=== PATIENT | female | born 1950 | race Caucasian/White ===

== ENCOUNTER 2021-07-16 05:41 | Day surgery (SDC) | payer MEDICARE ==
[2021-07-14 10:34] LABS: BASOPHILS % (AUTO) 0.6 % (0.0-5.0); EOSINOPHILS % (AUTO) 3.7 % (0.0-8.0); LYMPHOCYTES % (AUTO) 31.3 % (21.0-51.0); MEAN CORPUSCULAR HEMOGLOBIN 26.1 pg (27.0-33.0); MONOCYTES % (AUTO) 8.6 % (3.0-13.0); NEUTROPHILS % (AUTO) 55.3 % (40.0-77.0); PLATELET COUNT (AUTO) 353 K/uL (130-400); RED BLOOD CELL COUNT(AUTO) 4.71 MIL/uL (4.00-5.50); RED CELL DISTRIBUTION WIDTH 15.6 % (11.0-15.5); WHITE BLOOD COUNT (AUTO) 8.2 K/uL (4.8-10.8)
[2021-07-14 10:41] LABS: CREATININE 0.8 mg/dL (0.5-1.5); POTASSIUM 4.4 mmol/L (3.5-5.1)
[2021-07-15 09:20] VITALS: BP 148/74
[~2021-07-16] VITALS: Ht 160 cm; Wt 91.4 kg
[2021-07-16] VITALS (8 sets, daily range): BP systolic 107–119; BP diastolic 52–65
[~2021-07-16 05:41] MED LIST: AMLO-257 PO; ASPI-1443 PO; BRIM5DRO4 OU; BUPR-49 PO; CLOP75TA14 PO; EZET10TA48 PO; FLUT9.9S NS; LATA7.5D OU; LOSA100T58 PO; METH-812 PO; MVIT PO; NAPR1TAB28 PO; NAPR220C15 PO; OMEP-420 PO; PRAM0.258 PO; PRAV10TA39 PO; PREG150C46 PO; SEMA3TAB PO; ZOLP5TAB8 PO; [UNRECOGNIZED DRUG - OTHER] PO; [UNRECOGNIZED DRUG - OTHER] PO; calcium PO
[2021-07-16] MEDS ORDERED: 0.9%NACL 1000ML 1,000 ML IV ONE (06:11)
[2021-07-16] MEDS: CLINDAMYCIN IVPB 900MG/50ML 50 ML IV SCH ×2 (06:47→07:30)
[2021-07-16] MEDS ORDERED: FENTANYL CITRATE PF 50 MCG/1 ML 2ML VIAL ONE ×2 (06:58→07:32)
[2021-07-16] MEDS ORDERED: MIDAZOLAM HCL 1 MG/ML 2ML VIAL ONE (06:58)
[2021-07-16] MEDS ORDERED: SODIUM BICARB [NEONATAL] 4.2% 10ML SYG ONE (07:03)
[2021-07-16] MEDS ORDERED: BUPIVACAINE/PF 0.25% 30ML VIAL IJ ONE (07:04)
[2021-07-16] MEDS ORDERED: LIDOCAINE HCL 1% 20 ML VIAL ONE (07:04)
[2021-07-16] MEDS ORDERED: LIDOCAINE HCL MPF 1% 5ML VIAL ONE (07:09)
[2021-07-16] MEDS ORDERED: IOPAMIDOL 10 ML VIAL ONE (07:33)
[2021-07-16] MEDS ORDERED: ONDANSETRON 4MG INJ ONE (07:38)
== END 2021-07-16 09:15 | disposition home or self-care (01) ==
LOC: DAH 05:41
PROVIDERS: ATTEND Neurological Surgery
DX: M53.3 Sacrococcygeal disorders, not elsewhere classified (principal); Z79.01 Long term (current) use of anticoagulants; Z88.0 Allergy status to penicillin; Z79.899 Other long term (current) drug therapy; Z20.822 Contact with and (suspected) exposure to COVID-19
CPT/HCPCS: 36415; 72202; 80048; 82948 ×2; 85025; 87635; 93005; A4215 ×2; A4221; A4222; A4223; A4663; A6260; C9803; G0260; J1030; J2250; J2405; J3010 ×2; J3490 ×3; J7030; Q9966

== ENCOUNTER 2022-02-18 05:52 | Inpatient (IN) | payer MEDICARE ==
[2022-02-15 12:18] LABS: BASOPHILS % (AUTO) 0.6 % (0.0-5.0); EOSINOPHILS % (AUTO) 4.1 % (0.0-8.0); HEMATOCRIT 38.3 % (36-48); LYMPHOCYTES % (AUTO) 25.1 % (21.0-51.0); MEAN CORPUSCULAR HEMOGLOBIN 27.5 pg (27.0-33.0); MEAN CORPUSCULAR HGB CONC 31.1 g/dL (32.0-36.0); MEAN CORPUSCULAR VOLUME 88.7 fL (79-99); MONOCYTES % (AUTO) 7.6 % (3.0-13.0); PLATELET COUNT (AUTO) 348 K/uL (130-400); RED BLOOD CELL COUNT(AUTO) 4.32 MIL/uL (4.00-5.50); RED CELL DISTRIBUTION WIDTH 15.6 % (11.0-15.5); WHITE BLOOD COUNT (AUTO) 8.2 K/uL (4.8-10.8)
[2022-02-15 12:40] LABS: CREATININE 0.9 mg/dL (0.5-1.5); POTASSIUM 4.3 mmol/L (3.5-5.1)
[2022-02-17 08:38] VITALS: BP 175/80
[2022-02-18] VITALS (25 sets, daily range): BP systolic 113–148; BP diastolic 61–92
[~2022-02-18] VITALS: Ht 160 cm; Wt 92.4 kg
[~2022-02-18 05:52] MED LIST changes: -BRIM5DRO4 OU; -BUPR-49 PO; +CALC-1105 PO; -CLOP75TA14 PO; -FLUT9.9S NS; +L.AC1CAP6 PO; +MELA10TA2 PO; -METH-812 PO; -PREG150C46 PO; +PREG300C19 PO; -SEMA3TAB PO; +VENL-191 PO; -[UNRECOGNIZED DRUG - OTHER] PO; -[UNRECOGNIZED DRUG - OTHER] PO; -calcium PO
[2022-02-18] MEDS: CLINDAMYCIN IVPB 900MG/50ML 50 ML IV SCH ×6 (06:00→23:20)
[2022-02-18] MEDS ORDERED: LACTATED RINGERS 1000ML 1,000 ML IV ONE (06:25)
[2022-02-18] MEDS ORDERED: CEFAZOLIN SODIUM 1 GM VIAL ONE (06:32)
[2022-02-18] MEDS ORDERED: BUPIVACAINE/EPI/PF 0.5% 30ML VIAL IJ ONE (06:32)
[2022-02-18] MEDS ORDERED: PROPOFOL 10 MG/ML 20ML VIAL IV ONE (06:42)
[2022-02-18] MEDS ORDERED: SUCCINYLCHOLINE CHLORIDE 20 MG/ML 10 ML VIAL ONE (06:42)
[2022-02-18] MEDS ORDERED: NEOSTIGMINE 5MG/5ML SYR IV ONE (06:43)
[2022-02-18] MEDS ORDERED: ROCURONIUM 10MG/1ML SYR 10 MG/ML ML ONE (06:43)
[2022-02-18] MEDS ORDERED: ONDANSETRON 4MG INJ ONE ×2 (06:43→08:16)
[2022-02-18] MEDS ORDERED: MIDAZOLAM HCL 1 MG/ML 2ML VIAL ONE ×2 (06:43→07:50)
[2022-02-18] MEDS ORDERED: DEXAMETHASONE SOD PHOSPHATE 10MG/ML 1ML VIAL ONE (06:43)
[2022-02-18] MEDS ORDERED: GLYCOPYRROLATE 1 MG/5 ML SYRINGE ONE (06:43)
[2022-02-18] MEDS ORDERED: FENTANYL CITRATE PF 50 MCG/1 ML 2ML VIAL ONE ×3 (06:44→09:52)
[2022-02-18] MEDS ORDERED: ARTIFICIAL TEARS 3.5 GM OINTMENT ONE (08:00)
[2022-02-18] MEDS ORDERED: PHENYLEPHRINE HCL 10 MG/ML 1ML VIAL IV ONE (08:19)
[2022-02-18] MEDS ORDERED: VANCOMYCIN 1G VIAL ONE (08:46)
[2022-02-18] MEDS ORDERED: MEPERIDINE-PF 25 MG/ML SYG ONE (11:14)
[2022-02-18] MEDS: LACTATED RINGERS 1000ML 1,000 ML IV SCH ×4 (12:34→23:28)
[2022-02-18] MEDS: KETOROLAC 15MG/ML VIAL (15MG/ML) IV PRN ×2 (13:09→20:11)
[2022-02-18] MEDS ORDERED: PROMETHAZINE HCL 25 MG/ML 1ML AMPULE IM PRN (14:30)
[2022-02-18] MEDS ORDERED: 0.9%NACL 10ML VIAL IVP PRN (14:30)
[2022-02-18] MEDS: DEXAMETHASONE SOD PHOSPHATE 4 MG/ML 1ML VIAL IVP SCH ×3 (15:37→23:28)
[2022-02-18] MEDS: PANTOPRAZOLE 40 MG TAB DR PO SCH ×2 (15:37→15:48)
[2022-02-18] MEDS: LOSARTAN 100 MG TABLET PO SCH (20:08)
[2022-02-18] MEDS: PREGABALIN 100 MG CAPSULE PO SCH (20:09)
[2022-02-18] MEDS: NAPROXEN 250 MG TAB PO SCH (20:11)
[2022-02-18] MEDS: LATANOPROST 2.5 ML DROPS OU SCH (20:12)
[2022-02-18] MEDS: PRAMIPEXOLE DI-HCL 0.25 MG TABLET PO SCH (20:12)
[2022-02-18] MEDS: ZOLPIDEM TARTRATE 5 MG TAB PO SCH (20:12)
[2022-02-18] MEDS: MELATONIN 20 MG PO SCH (20:12)
[2022-02-18] MEDS: ASPIRIN 81 MG EC TAB PO SCH (20:13)
[2022-02-18] MEDS: EZETIMIBE 10 MG TAB PO SCH (20:14)
[2022-02-18] MEDS: HYDROCODONE/ACETAMINOPHEN 5/325 MG TAB PO PRN (21:16)
[2022-02-18] MEDS: MORPHINE 2 MG SYG IVP PRN (23:28)
[2022-02-19] MEDS: CLINDAMYCIN IVPB 900MG/50ML 50 ML IV SCH ×3 (02:56→23:19)
[2022-02-19 03:00] VITALS: BP 138/77
[2022-02-19 08:00] VITALS: BP 130/79
[2022-02-19] MEDS: LACTOBACILLUS RHAMNOSUS GG 1 EACH CAP.SPRINK PO SCH (08:32)
[2022-02-19] MEDS: CA 600MG+VIT D 400 UNIT TAB 1 TAB TABLET PO SCH (08:32)
[2022-02-19] MEDS: VENLAFAXINE HCL XR 37.5 MG CAP PO SCH (08:32)
[2022-02-19] MEDS: PANTOPRAZOLE 40 MG TAB DR PO SCH (08:33)
[2022-02-19] MEDS: NAPROXEN 250 MG TAB PO SCH ×3 (08:33→19:59)
[2022-02-19] MEDS: AMLODIPINE 5 MG TAB PO SCH (08:33)
[2022-02-19] MEDS: MULTIVITAMIN TABLET PO SCH (08:33)
[2022-02-19] MEDS: HYDROCODONE/ACETAMINOPHEN 5/325 MG TAB PO PRN ×2 (08:45→18:48)
[2022-02-19] MEDS: MORPHINE 2 MG SYG IVP PRN (11:13)
[2022-02-19] MEDS: DEXAMETHASONE SOD PHOSPHATE 4 MG/ML 1ML VIAL IVP SCH ×3 (11:14→23:19)
[2022-02-19 12:00] VITALS: BP 121/66
[2022-02-19] MEDS: LACTATED RINGERS 1000ML 1,000 ML IV SCH ×3 (15:10→23:19)
[2022-02-19 16:00] VITALS: BP 139/72
[2022-02-19] MEDS: MELATONIN 20 MG PO SCH (19:42)
[2022-02-19] MEDS: ZOLPIDEM TARTRATE 5 MG TAB PO SCH (19:57)
[2022-02-19] MEDS: LATANOPROST 2.5 ML DROPS OU SCH (19:57)
[2022-02-19] MEDS: PREGABALIN 100 MG CAPSULE PO SCH (19:58)
[2022-02-19] MEDS: PRAMIPEXOLE DI-HCL 0.25 MG TABLET PO SCH (19:58)
[2022-02-19] MEDS: ASPIRIN 81 MG EC TAB PO SCH (19:58)
[2022-02-19] MEDS: LOSARTAN 100 MG TABLET PO SCH (19:58)
[2022-02-19] MEDS: EZETIMIBE 10 MG TAB PO SCH (19:59)
[2022-02-19 20:00] VITALS: BP 125/65
[2022-02-19] MEDS ORDERED: SIMVASTATIN 10 MG TABLET PO SCH (21:00)
[2022-02-20] VITALS: BP 156/86
[2022-02-20] MEDS: HYDROCODONE/ACETAMINOPHEN 5/325 MG TAB PO PRN ×2 (00:48→11:12)
[2022-02-20 04:00] VITALS: BP 156/84
[2022-02-20] MEDS: DEXAMETHASONE SOD PHOSPHATE 4 MG/ML 1ML VIAL IVP SCH ×2 (05:31→11:12)
[2022-02-20 08:00] VITALS: BP 164/84
[2022-02-20] MEDS: CA 600MG+VIT D 400 UNIT TAB 1 TAB TABLET PO SCH (08:43)
[2022-02-20] MEDS: NAPROXEN 250 MG TAB PO SCH (08:43)
[2022-02-20] MEDS: PANTOPRAZOLE 40 MG TAB DR PO SCH (08:43)
[2022-02-20] MEDS: LACTOBACILLUS RHAMNOSUS GG 1 EACH CAP.SPRINK PO SCH (08:44)
[2022-02-20] MEDS: VENLAFAXINE HCL XR 37.5 MG CAP PO SCH (08:44)
[2022-02-20] MEDS: AMLODIPINE 5 MG TAB PO SCH (08:45)
[2022-02-20] MEDS: MULTIVITAMIN TABLET PO SCH (08:45)
== END 2022-02-20 11:28 | DRG 460 ==
LOC: DAHIP 05:52 → EDSTATUS 07:30 → 4AH 11:59
PROVIDERS: ADMIT Neurological Surgery; ATTEND Neurological Surgery
PROC: 0SG707Z Fusion of Right Sacroiliac Joint with Autologous Tissue Substitute, Open Approach (ICD-10-PCS; principal; 2022-02-18 07:48)
PROC: 0SG704Z Fusion of Right Sacroiliac Joint with Internal Fixation Device, Open Approach (ICD-10-PCS; 2022-02-18 07:48)
DX: M53.3 Sacrococcygeal disorders, not elsewhere classified (principal); Z88.0 Allergy status to penicillin; Z88.8 Allergy status to other drugs, medicaments and biological substances; M79.7 Fibromyalgia; I25.10 Atherosclerotic heart disease of native coronary artery without angina pectoris; E78.5 Hyperlipidemia, unspecified; E78.00 Pure hypercholesterolemia, unspecified; I10 Essential (primary) hypertension; K21.9 Gastro-esophageal reflux disease without esophagitis; Z86.73 Personal history of transient ischemic attack (TIA), and cerebral infarction without residual deficits
CPT/HCPCS: 36415; 71045; 72192; 72202; 80048; 85025; 87635; 93005; 97039; G0378; J0330; J0690; J1100; J1885; J2175; J2250; J2370; J2405; J2704; J2710; J3010; J3370; J3490; J7120

== ENCOUNTER → 2022-03-22 | Outpatient (CLI) | payer MEDICARE ==
[~2022-03-22] MED LIST changes: -NAPR1TAB28 PO
== END | disposition home or self-care (01) ==
LOC: RAH 09:21
PROVIDERS: ATTEND Neurological Surgery
DX: M43.28 Fusion of spine, sacral and sacrococcygeal region (principal); Z98.1 Arthrodesis status
CPT/HCPCS: 72202

== ENCOUNTER → 2022-12-17 | Outpatient (CLI) | payer MEDICARE | END | disposition home or self-care (01) | LOC: RAH 09:05 | PROVIDERS: ATTEND Neurological Surgery | DX: M43.28 Fusion of spine, sacral and sacrococcygeal region (principal); Z98.1 Arthrodesis status | CPT/HCPCS: 72202 ==

== ENCOUNTER 2023-11-10 05:54 | Day surgery (SDC) | payer MEDICARE ==
[2023-11-08 12:16] LABS: BASOPHILS # (AUTO) 0.05 K/uL (0.00-0.20); BASOPHILS % (AUTO) 0.5 % (0.0-5.0); EOSINOPHILS # (AUTO) 0.28 K/uL (0.00-0.70); EOSINOPHILS % (AUTO) 2.6 % (0.0-8.0); HEMATOCRIT 41.8 % (36-48); IMMATURE GRANULOCYTE ABSOLUTE 0.05 K/uL (0-1); LYMPHOCYTES # (AUTO) 3.1 K/uL (1.0-4.8); LYMPHOCYTES % (AUTO) 29.2 % (21.0-51.0); MEAN CORPUSCULAR HEMOGLOBIN 27.6 pg (27.0-33.0); MEAN CORPUSCULAR HGB CONC 31.3 g/dL (32.0-36.0); MONOCYTES # (AUTO) 0.9 K/uL (0.1-1.0); NEUTROPHILS # (AUTO) 6.3 K/uL (1.8-7.7); NEUTROPHILS % (AUTO) 59.2 % (40.0-77.0); PLATELET COUNT (AUTO) 364 K/uL (130-400); RED BLOOD CELL COUNT(AUTO) 4.75 MIL/uL (4.00-5.50); RED CELL DISTRIBUTION WIDTH 15.1 % (11.0-15.5); WHITE BLOOD COUNT (AUTO) 10.6 K/uL (4.8-10.8)
[2023-11-08 12:29] LABS: INR <= 0.93 (0.85-1.15); PROTHROMBIN TIME 10.8 SEC (9.6-11.6)
[2023-11-08 12:30] LABS: APPEARANCE,URINE CLEAR (CLEAR); BILIRUBIN,URINE NEGATIVE (NEGATIVE); COLOR,URINE LIGHT-YELLOW (YELLOW); GLUCOSE, URINE (UA) NEGATIVE (NEGATIVE); KETONES,URINE NEGATIVE (NEGATIVE); LEUKOCYTE ESTERASE ,URINE NEGATIVE Leu/uL (NEGATIVE); NITRATE,URINE NEGATIVE (NEGATIVE); OCCULT BLOOD,URINE NEGATIVE (NEGATIVE); PROTEIN,URINE NEGATIVE (NEGATIVE); UROBILINOGEN,URINE 0.2 mg/dL (0.2-1.0)
[2023-11-08 12:36] LABS: ADD UA MICROSCOPIC NO
[2023-11-08 12:38] LABS: CREATININE 0.9 mg/dL (0.5-1.5); POTASSIUM 4.1 mmol/L (3.5-5.1)
[2023-11-08 12:49] VITALS: BP 196/99; PULSE 102; RESP 17
[2023-11-08 13:09] LABS: B-TYPE NATRIURETIC PEPTIDE 53 pg/mL (0-100)
[2023-11-10] VITALS (10 sets, daily range): BP systolic 110–161; BP diastolic 62–91; PULSE 76–103; RESP 14–18
[~2023-11-10] VITALS: Ht 160 cm; Wt 87.2 kg
[~2023-11-10 05:54] MED LIST changes: -AMLO-257 PO; -ASPI-1443 PO; +BRIMONIDINE OU; +CETI10TA57 PO; +COQ 10 PO; +CYCL-309 PO; +DICL100T85 PO; +GREENS PO; +HYDR12.54 PO; +ISOS60TA77 PO; -L.AC1CAP6 PO; +LORA10TA7 PO; -LOSA100T58 PO; +LOSA100T59 PO; +METO-408 PO; +MVI PO; -MVIT PO; -NAPR220C15 PO; +NITR0.4T50 SL; -OMEP-420 PO; +OMEP20CA12 PO; -PRAV10TA39 PO; -PREG300C19 PO; +ROSU20TA73 PO; +TRAM100T40 PO; -VENL-191 PO; +VENL150T3 PO; +VITA-388 PO; -ZOLP5TAB8 PO; +[UNRECOGNIZED DRUG - OTHER] PO
[2023-11-10] MEDS: SOLU-MEDROL 125MG VIAL IVP ONE (07:06)
[2023-11-10] MEDS ORDERED: DICL20GE TP (07:06)
[2023-11-10] MEDS: DiphenhydrAMINE HCL 50 MG/ML VIAL IV ONE (07:06)
[2023-11-10] MEDS: 0.9%NACL 1000ML 1,000 ML IV ONE (07:07)
[2023-11-10] MEDS ORDERED: IOHEXOL 350 MG/ML 100ML INFUS..BTL IV ONE (07:14)
[2023-11-10] MEDS ORDERED: IOHEXOL-350 75 ML VIAL IV ONE (07:14)
[2023-11-10] MEDS ORDERED: LIDOCAINE HCL 400MG/20ML VIAL ONE (07:14)
[2023-11-10] MEDS ORDERED: MIDAZOLAM HCL 1 MG/ML 2ML VIAL ONE (07:14)
[2023-11-10] MEDS ORDERED: HEPARIN 10,000 UNIT/10ML (1,000 UNIT/ML) VIAL ONE (07:14)
[2023-11-10] MEDS ORDERED: IOHEXOL-350 50ML VIAL IV ONE (07:14)
[2023-11-10] MEDS ORDERED: NITROGLYCERIN 50MG VIAL ONE (07:15)
== END 2023-11-10 11:05 | disposition home or self-care (01) ==
LOC: DAH 05:54
PROVIDERS: ATTEND Internal Medicine Cardiovascular Disease
DX: I25.112 Atherosclerotic heart disease of native coronary artery with refractory angina pectoris (principal); I35.8 Other nonrheumatic aortic valve disorders; K21.9 Gastro-esophageal reflux disease without esophagitis; G25.9 Extrapyramidal and movement disorder, unspecified; Q21.12 Patent foramen ovale; I10 Essential (primary) hypertension; E78.5 Hyperlipidemia, unspecified; Z88.0 Allergy status to penicillin; Z88.3 Allergy status to other anti-infective agents; Z88.8 Allergy status to other drugs, medicaments and biological substances; Z86.73 Personal history of transient ischemic attack (TIA), and cerebral infarction without residual deficits; Z79.01 Long term (current) use of anticoagulants; Z79.899 Other long term (current) drug therapy
CPT/HCPCS: 80048; 83880; 85025; 85610; 85730; 81003; 36415; 71045; 93005; 93458; 82948 ×2; C1894; C1760; J1200; J3490 ×2; J7030; J2930; J2250; J1644; Q9967; A4215; A4222; A4221; A4663; A4216; A4606; Q9965; A4223 ×3; 99156; 99157

== ENCOUNTER → 2023-11-29 | Outpatient (CLI) | payer MEDICARE ==
[~2023-11-29] MED LIST changes: +DICL20GE TP; -ISOS60TA77 PO
== END | disposition home or self-care (01) ==
LOC: LAB 12:43
PROVIDERS: ATTEND Internal Medicine Cardiovascular Disease
DX: Q21.12 Patent foramen ovale (principal); E78.5 Hyperlipidemia, unspecified; K21.9 Gastro-esophageal reflux disease without esophagitis
CPT/HCPCS: 36415; 84443